=== PATIENT | male | born 1950 | race Caucasian/White ===

== ENCOUNTER 2023-09-15 13:26 | Emergency (ER) | payer MEDICARE, OTHER, SELFPAY ==
[2023-09-15 13:28] VITALS: BP 130/100
[2023-09-15 13:58] VITALS: BP 136/73
[2023-09-15 14:00] VITALS: BP 132/82
[2023-09-15 14:20] VITALS: BMI 24.9
--- NOTE | 2023-09-15 14:45 | ED.GENMED ---
History of Present Illness
General
Chief Complaint: Chest Pain
Time Seen by Provider: 09/15/23 14:45
Travel History
Have you had any contact with someone who has COVID-19?: No
Do you have any symptoms of coronavirus? Fever > 100 degrees, chills, cough, shortness of breath, sore throat, loss of taste or smell, muscle aches, or headache?: No
History of Present Illness
History of Present Illness:
HPI: Over the past 2 to 3 weeks the patient's been having chest discomfort described as pressure in the right upper anterior chest wall. The symptoms are nonexertional. He has no associated diaphoresis or shortness of breath. He has been in A-fib
over the past 10 years or so status post electrocardioversion and ablation by Dr. Jalloh. He called Dr. Jalloh's office 3 days ago and encouraged him to come to the ER if symptoms worsen. The symptoms are persisting so he came in here for
further evaluation.
EXAM:
GENERAL: Well appearing in no distress
HEENT: Moist oral mucosa
CARDIOVASCULAR: No murmurs, normal heart rate, regular rhythm, minimal if any right upper anterior chest wall tenderness
PULMONARY: No respiratory distress, breath sounds are clear and equal
ABDOMEN: Soft with no peritoneal signs, no tenderness
NEUROLOGIC: Excellent strength all extremities, no coordination deficits
PSYCHIATRIC: Appropriate mental status, normal insight and judgement
EXTREMITIES: Nontender, no edema, moves all extremities equally
SKIN: No rash, no lesions
TIME OF INITIAL ENCOUNTER: 2:45 PM
NUMBER AND COMPLEXITY OF PROBLEMS ADDRESSED AT THE ENCOUNTER
� Chronic conditions affecting care: Atrial fibrillation had cardioversion 2009, high blood pressure, hyperlipidemia
� Acute Exacerbation and/or Progression of Chronic Illness: This is an acute problem
� Differential Diagnosis includes: Anterior chest wall pain, pneumothorax/pneumonia unlikely, ACS, symptoms related to A-fib unlikely
AMOUNT AND/OR COMPLEXITY OF DATA TO BE REVIEWED AND ANALYZED
� I performed an independent evaluation of and my interpretation is:
EKG: A-fib ventricular rate of 78, normal axis, nonspecific ST abnormality, IRBBB�on 04/22/2012 the patient was in sinus rhythm
CT:
X-rays: Chest x-ray shows no acute abnormality
Laboratory Studies: CBC, chemistries and troponin unremarkable
Other:
� Review of other/old records: I reviewed records, the patient had a cardioversion in [address] Jalloh
� Clinical information was obtained by an independent historian: Spoke to the at bedside
� Prescriptions/Medications Considered but not given:
� Further testing considered but not performed:
RISK OF COMPLICATIONS AND/OR MORBIDITY OR MORTALITY OF PATIENT MANAGEMENT
� Social determinants of health affecting care: Lives at home
� Discussion with other providers: Notified Dr. Blount with outpatient management
� Escalation of care including admission/observation vs risk of discharge considered: Patient has relatively unremarkable ED chest pain workup. He has had no exertional symptoms, no diaphoresis, no shortness of breath. His
troponin is normal despite weeks of symptoms. He has an appoint to see cardiology this coming Sunday. I assessed patient at 4:30 PM there has been no change in his symptoms. He appears very comfortable at time of discharge.
Past History
Past History
ED Past Medical History: HTN and Hypercholesterolemia
Social History
Alcohol: None
Personal:
Living: with family
Phy Exam
Physical Exam
Physical Exam:
See HPI
Scores
Heart Score for Chest Pain Patients
STEMI patient?: Not applicable
Course
Orders/Labs/Results
Orders:
Orders
09/15/23 13:28
Electrocardiogram (*1) Urgent
Reason for Study: Atrial Fibrillation
EKG- Treatment ONCE
09/15/23 14:52
CR Chest - 2 Views Urgent
Comment:
Reason For Exam: R upper ACW pain
09/15/23 15:04
Complete Blood Count/With Diff Urgent
Comprehensive Metabolic Panel Urgent
Magnesium Urgent
Troponin I Urgent
Abnormal Lab Results
09/15/23
15:04
MCH 32.3 H pg
(27.0-31.0)
RDW 14.6 H %
(11.5-14.5)
MPV 10.5 H fL
(7.4-10.4)
Absolute Monos (auto) 0.9 H 10^3/uL
(0.1-0.6)
Monocytes % 12.5 H %
(1.7-9.3)
BUN 24 H mg/dl
(9-20)
Total Bilirubin 1.4 H mg/dl
(0.2-1.3)
09/15/23 15:04
09/15/23 15:04
Vital Signs
Initial and Last Documented VS:
Initial Vital Signs
Temp Pulse Resp BP Pulse Ox
98.2 F 92 20 130/100 97
09/15/23 13:28 09/15/23 13:28 09/15/23 13:28 09/15/23 13:28 09/15/23 13:28
Last Documented Vital Signs
Temp Pulse Resp BP Pulse Ox
98.2 F 72 19 139/92 97
09/15/23 13:28 09/15/23 16:30 09/15/23 16:30 09/15/23 15:00 09/15/23 16:30
*Critical Care Note
Total Time (30-74mins, 75-104mins- exclusive of procedures): Not Applicable
ED Attending Note
-
Portions of this chart may have been created with voice recognition software.� Occasional wrong word or��sound alike� substitutions may have occurred due to the inherent limitations of voice recognition software.
Discharge Plan
Departure
Patient Disposition: Home (Routine Discharge)
Date of Disposition: 09/15/23
Time of Disposition: 16:30
Patient with high blood pressure during this ER visit?: Yes
Discharge Problem:
Chest pain
Instructions: Chest Pain DCA Follow Up
Prescriptions:
No Action
diltiazem HCl [Cardizem CD] 180 MG capsule,extended release 24hr
180 mg PO DAILY
metoprolol succinate 25 MG tablet extended release 24 hr
25 mg PO DAILY
hydrochlorothiazide 12.5 mg Capsule
12.5 mg PO DAILY PRN (Reason: swelling)
Xarelto 20 mg Tablet
20 mg PO QPM
Hold Instructions: Resume on 03/26/23. RESUME WHEN 10MG DOSING IS FINISHED
diphenhydramine HCl 50 mg Capsule
50 mg PO HSPRN PRN (Reason: insomnia)
mupirocin 2 % ointment
1 applic intranasal BID Qty: 1 0RF
Patient Comments:
applied this am 03/12/23
atorvastatin 10 mg Tablet
10 mg PO QPM
Zoryve 0.3 % Cream
1 applic TOPICAL DAILY
sennosides [Senokot] 8.6 mg tablet
17.2 mg PO BID Qty: 2 0RF
prednisone 10 mg tablet
40 mg PO TAPER Qty: 20 0RF
Patient Comments:
for post op
Rx Instructions:
4 TABS X 2 DAYS, 3 TABS X 2 DAYS, 2 TABS X 2 DAYS, 1 TAB X 2 DAYS, THEN STOP
famotidine 20 mg tablet
20 mg PO HS Qty: 30 0RF
Patient Comments:
for post op
Rx Instructions:
post-op
magnesium hydroxide [Milk of Magnesia] 400 mg/5 mL suspension
30 ml PO HS PRN (Reason: Constipation) Qty: 1 0RF
Patient Comments:
for post op
docusate sodium [Colace] 100 mg capsule
100 mg PO BID Qty: 1 0RF
Patient Comments:
for post op
gabapentin 300 mg capsule
300 mg PO HS Qty: 10 0RF
Patient Comments:
for post op
oxycodone 5 mg tablet
5 - 10 mg PO Q6HPRN PRN (Reason: 1 tab moderate-2 tabs severe pain) Qty: 30 0RF
Patient Comments:
for post op
Rx Instructions:
Dx surgery
ongoing therapy
Post-op use
acetaminophen [Tylenol] 325 mg capsule
650 mg PO QID Qty: 2 0RF
Patient Comments:
last took on 03/08/23
Xarelto 10 mg tablet
10 mg PO HS Qty: 14 0RF
losartan 100 mg Tablet
100 mg PO HS Qty: 0 0RF
Patient Comments:
took 03/11/23 at 2100
Rx Instructions:
HOLD SYSTOLIC BLOOD PRESSURE <135 IF TAKING PAIN MED WITHIN 12HOURS
Referrals:
Dean Jalloh MD [Active] - Follow up in 2-3 days
Jasper Martinez MD [Family Provider] -
Activity Restrictions/Additional Instructions:
Please follow-up with your shrink pit operator this week. If your symptoms worsen please return here. Chest x-ray shows no acute abnormality. Troponin (heart attack test) is negative. EKG shows atrial fibrillation. Other basic labs are normal.
Interventions
Interventions:
*Risk Screen - Suicide Last Done: 09/15/23 13:28
*General Assessment Last Done: 09/15/23 13:28
*Neglect/Abuse Screening Last Done: 09/15/23 13:28
*ED COVID-19 Vaccine History Last Done: 09/15/23 14:26
ED- Cardiac Assessment Last Done: 09/15/23 14:26
Discharge Date and Time
Print Language: SLOVAK
[2023-09-15 15:00] VITALS: BP 139/92
[2023-09-15 15:15] LABS: % Basophils 0.6 % (0-2); % Eosinophils 1.3 % (0-6); % Immature Granulocytes 0.1 % (0-0.5); % Lymphocytes 26.5 % (20.5-51.1); % Monocytes 12.5 % (1.7-9.3); Absolute Eosinophils 0.1 10^3/uL (0-0.7); Absolute Lymphocytes 1.8 10^3/uL (1.2-3.4); Absolute Monocytes 0.9 10^3/uL (0.1-0.6); Hematocrit 44.5 % (39.0-52.0); Hemoglobin 15.3 g/dL (13.0-18.0); Mean Corp Hgb Conc. 34.4 g/dL (33.0-37.0); Mean Corpuscular Hgb 32.3 pg (27.0-31.0); Mean Corpuscular Volume 93.9 fL (80.0-94.0); Mean Platelet Volume 10.5 fL (7.4-10.4); Nucleated Red Blood Cells % 0 % (-); Platelet Count 197 10^3/uL (130-400); Red Blood Cell Count 4.74 10^6/uL (4.70-6.10); Red Cell Dist. Width 14.6 % (11.5-14.5); White Blood Cell Count 6.9 10^3/uL (4.8-10.8)
[2023-09-15 15:29] LABS: ALT (SGPT) 40 U/L (0-50); AST (SGOT) 51 U/L (17-59); Albumin 4.5 g/dl (3.5-5.0); Alkaline Phosphatase 58 U/L (38-126); Blood Urea Nitrogen 24 mg/dl (9-20); Calcium 9.7 mg/dl (8.4-10.2); Carbon Dioxide 25 mmol/L (22-30); Chloride 105 mmol/L (98-107); Estimated Creatinine Clearance 118 ml/min; Glucose 97 mg/dl (70-99); Magnesium 1.9 mg/dl (1.6-2.3); Potassium 4.4 mmol/L (3.5-5.1); Sodium 135 mmol/L (135-145); Total Bilirubin 1.4 mg/dl (0.2-1.3); Total Protein 7.4 g/dl (6.3-8.2); eGFR > 60.00
[2023-09-15 15:41] LABS: Troponin I < 0.012 ng/ml
[2023-09-15 16:30] VITALS: BP 150/96
== END 2023-09-15 16:45 | disposition home or self-care (01) ==
LOC: EMR 13:26
PROVIDERS: EMERGENCY PHYSICIAN Emergency Medicine; FAMILY PHYSICIAN Family Medicine
DX: R07.89 Other chest pain (principal); I10 Essential (primary) hypertension; I48.91 Unspecified atrial fibrillation
CPT/HCPCS: 99285; 71046; 80053; 83735; 84484; 85025; 93005

== ENCOUNTER → 2024-04-21 11:57 | Outpatient (REF) | payer MEDICARE, OTHER, SELFPAY | LOC: PAVMRI 11:57 | PROVIDERS: ATTENDING PHYSICIAN Otolaryngology; FAMILY PHYSICIAN Family Medicine | DX: H93.11 Tinnitus, right ear (principal) | CPT/HCPCS: 70553; A9575 ==

== ENCOUNTER → 2024-05-09 12:33 | Outpatient (REF) | payer MEDICARE, OTHER, SELFPAY | LOC: RCS 12:33 | PROVIDERS: ATTENDING PHYSICIAN Physician Assistant Medical; FAMILY PHYSICIAN Family Medicine | DX: I08.0 Rheumatic disorders of both mitral and aortic valves (principal) | CPT/HCPCS: 93306 ==

== ENCOUNTER → 2024-07-01 08:36 | Outpatient (REF) | payer MEDICARE, OTHER, SELFPAY | LOC: RAD 08:36 | PROVIDERS: ATTENDING PHYSICIAN Nuclear Medicine Nuclear Cardiology; FAMILY PHYSICIAN Family Medicine | DX: I73.9 Peripheral vascular disease, unspecified (principal); G62.9 Polyneuropathy, unspecified | CPT/HCPCS: 93922; 93925 ==

== ENCOUNTER → 2024-07-22 08:12 | Outpatient (REF) | payer MEDICARE, OTHER, SELFPAY | LOC: RCS 08:12 | PROVIDERS: ATTENDING PHYSICIAN Nuclear Medicine Nuclear Cardiology; FAMILY PHYSICIAN Family Medicine | DX: R07.89 Other chest pain (principal) | CPT/HCPCS: 93017; 93350 ==

== ENCOUNTER → 2024-12-25 14:34 | Outpatient (REF) | payer MEDICARE, OTHER, SELFPAY | LOC: HWRAD 14:34 | PROVIDERS: ATTENDING PHYSICIAN Family Medicine | DX: E04.1 Nontoxic single thyroid nodule (principal) | CPT/HCPCS: 76536 ==